=== PATIENT | male | born 1970 | race Caucasian/White ===

== ENCOUNTER → 2018-12-20 | Outpatient (CLI) | payer OTHER ==
[~2018-12-20] VITALS: Ht 198.1 cm; Wt 108.9 kg
[~2018-12-20] MED LIST: B-121000 MC2 PO; COLACE 100 MG100 MG PO; CYMBALTA60 MG PO; DICLOFENAC SODI25 MG PO; EZETIMIBE10 MG PO; FLEXERIL PO; IBUPROFEN 600600 M1 PO; LIPITOR80 MG PO; LISINOPRIL40 MG PO; LORAZEPAM 0.50.5 M1 PO; MOBIC15 MG PO; NEURONTIN600 MG PO; NOHOMEMEDICATIONS; NORCO 5-325 TA1 EACH PO; OMEPRAZOLE40 MG PO; PROPRANOLOL 20M20 M1 PO; ROBAXIN 750 MG750 MG PO; VIAGRA100 MG PO; VITAMIN D1000 UNI1 PO
--- NOTE | ~2018-12-20 | HPC ---
[facility] [address] [place] [address] PAIN MANAGEMENT CONSULTATION Name: LEYVAELIZABETH Room #: REG JONAH [facility].#: [id number] Admission: 12/20/18 Attend Phys: Hunter Alvarez DO Discharge: Date of : 72 Report #: [id number] THIS REPORT FOR: //name// CC: JASON Wren Physician staff DATE OF SERVICE: 12/20/2018 REFERRING NEUROSURGEON: Dr. Augustine Wren CHIEF COMPLAINT: Axial back pain, bilateral lower extremity pain.. HISTORY OF PRESENT ILLNESS: As you know, the patient is a 48-year-old female who has had a longstanding history of low back pain, bilateral lower extremity pain with right greater than left. He has trialled conservative treatment options, physical therapy, plju-mvo-pldnwvn medications and even more adjunct treatment such as a chiropractic manipulation without pain improvement. He has been referred to see Neurosurgery, where he was evaluated by Dr. Augustine Wren and referred to our clinic to undergo an L4-L5 discoblock for ALIF evaluation. The patient indicates pain has been present for years. There has been no new injury or trauma. The patient describes today pain is continuous, steady, constant, rhythmic with intermittent momentary and transient exacerbations of symptoms. He indicates pain is burning, shooting, aching, pulling, gnawing, throbbing, pounding, sharp, stabbing, numbness and tingling when describing symptoms. He places current pain score at 7/10, daily average at 8/10, worst pain has been is 8/10. The patient states that sitting, walking and standing exacerbates symptoms; nothing has improved pain to date. He has been referred to our service by his neurosurgeon to undergo an L4-L5 discoblock for a possible surgical consideration. PAST MEDICAL HISTORY: 1. Degenerative joint disease. 2. Osteoarthritis. 3. Coronary artery disease. 4. Peptic ulcer disease. 5. Dyslipidemia. PAST SURGICAL HISTORY: 1. Herniorrhaphy. 2. Vasectomy. SOCIAL HISTORY: The patient smokes 1-pack to 1-1/2 packs tobacco per day, has [facility] [address] [place] [address] PAIN MANAGEMENT CONSULTATION Name: ELIZABETH LEYVA Room #: REG [facility].#: [id number] Admission: 12/20/18 Attend Phys: Hunter Alvarez DO Discharge: Date of : 72 Report #: [id number] done so for 35 years. He denies IV or illicit drug use. He admits to occasional alcohol beverage. He is currently unemployed as he has stopped work since 06/2018 due to ongoing back pain issues. He is not receiving workmen's compensation, nor is he trying to obtain disability benefits. He is not in litigation in regards to pain. He is unaccompanied today. ALLERGIES: No reported drug allergies. CURRENT MEDICATIONS: Gabapentin 600 mg t.i.d., propranolol 20 mg b.i.d., lorazepam 0.5 mg b.i.d., duloxetine 60 mg 2 tablets p.o. at bedtime, diclofenac sodium 25 mg 3 times a day, methocarbamol 750 mg q.8 hours p.r.n., omeprazole 40 mg per day, atorvastatin 80 mg per day, cyclobenzaprine 10 mg t.i.d., Zetia 10 mg once a day, meloxicam 15 mg once a day, Viagra 100 mg p.r.n., cyanocobalamin 1000 mcg once a day, cholecalciferol 1000 units once a day, lisinopril 40 mg per day, hydrocodone/acetaminophen 5/325 one tablet every 4 hours p.r.n. for pain and Colace 100 mg once a day p.r.n. IMAGING: X-ray imaging of the lumbar spine obtained 10/18/2018 shows grade 1 anterolisthesis of L2 on L3, slightly progressed from 12/2017. No evidence of acute herniation or changes in the vertebral column other than that single issue. PHYSICAL EXAMINATION: VITAL SIGNS: Blood pressure 137/83, pulse 63, respiratory rate 16 and unlabored. The patient is 100% on room air, height 6 feet 6 inches tall, weight 240 pounds, BMI calculated 27.7. GENERAL: Well-developed, well-nourished, well-hydrated 48-year-old male, appearing stated age, pain is rated around 7/10. HEENT: Normocephalic, atraumatic. Pupils are equal, round, reactive to light. Extraocular muscles are intact. Sclerae are nonicteric without injection. NEUROLOGIC: Cranial nerves 2-12 grossly intact. Speech fluent. The patient deemed a good historian. LUNGS: Clear, though prolonged expiratory phase. CARDIOVASCULAR: Regular. No appreciable gallop, no rub. ABDOMEN: Soft, nontender, nondistended, normoactive bowel sounds. EXTREMITIES: Show no clubbing, no cyanosis, and no edema. MUSCULOSKELETAL: Lower extremity strength appears symmetrical, 5/5. Muscle bulk and tone is equal and symmetrical in comparing left lower extremity to right. Seated straight leg raising negative. Supine straight leg raising negative. KIRTI'S test is negative. Modified Gaenslen's is positive for some axial back pain. Axial compression does cause increase in overall pain in the lumbar region. Lumbar provocation testing including extension, rotation, lateral flexion, all intensify axial back pain. No radicular component noted with today's evaluation. Babinski is negative. Ankle clonus negative. ASSESSMENT: [facility] [address] [place] [address] PAIN MANAGEMENT CONSULTATION Name: GERA LEYVAIC Room #: REG Kristopher Cottrell#: [id number] Admission: 12/20/18 Attend Phys: Hunter Alvarez DO Discharge: Date of : 72 Report #: [id number] 1. Discogenic pain. 2. Displacement of intervertebral disk at the L4-L5 level. 3. Chronic intractable pain. PLAN: 1. The patient has been referred to our service by his neurosurgeon, Dr. Augustine Wren, to undergo a diagnostic L4-L5 discoblock for possible ALIF evaluation. The patient indicates he has been experiencing pain for years and has finally had some treatment from a medication management standpoint, but also from injection standpoint at his prior pain service. He has been referred to our clinic after seeing Neurosurgery to undergo disc block for diagnostic purposes. If this is successful, then the plan will have the patient to undergo surgery with Dr. Augustine Wren. He has been referred to our service to begin the authorization process to undergo an L4-L5 discoblock to address discogenic pain. 2. The patient was advised that third alliance party payer restrictions require the authorization be obtained before the patient could undergo this requested diagnostic block. We will begin the process of preapproval immediately. We will contact the patient once this has been completed. Authorization could take anywhere from 4 to 7 working days. We are hopeful to have this process completed, so the patient can undergo the procedure and move forward with surgery, assuming he gets good and prolonged benefit with the block itself. 3. No medication changes made at today's visit. The patient will continue current medical therapy as previously prescribed. 4. We will see the patient back in followup visit once we have achieved authorization to undergo a L4-L5 discoblock under fluoroscopic guidance. 5. We wish to thank Dr. Wren for the referral of the patient to our clinic. We will keep you apprised of his response to treatment as he would undergo this diagnostic block. Again, we wish to thank you for the opportunity to see the patient in consultation. By: [id number] Hunter Alvarez DO /nt
[2018-12-20 09:35] VITALS: BP 137/83
--- NOTE | 2018-12-20 10:00 | NUR ---
Pain Clinic Assessment: 1. History of Osteoarthritis: LOWER BACK History of Rheumatoid Arthritis: NONE 2. Height: 6 ft. 6 in. 198.1 cm. Weight: 240.0 lb. oz. 108.864 kg. Patient's BMI: 27.7 3. Vital Signs: BP: 137/83 Pulse: 63 Resp: 16 Temp: 02 Sat: 100 ECG Mon: 4. Pain Intensity: 7 5. Fall Risk: Dizziness: N Needs help standing or walking: N Fallen in the last 3 months: Y Fall risk comments: 6. Patient on Blood Thinner: None 7. History of Hypertension: Y 8. Opioid Therapy greater than 6 weeks: Opiate Contract Signed: 9. Risk Assessment Tool Provided: LOW 10. Functional Assessment Tool: 48/ 11. Recreational Drug Use: Never Drug Type: Tobacco Use: Current Every Day Smoker Tobacco Type: Cigarettes Amount or Packs/day: 1.5 pack How Many Years: 32 Alcohol Use: Yes Frequency: Special Occasions Quant:
== END ==
LOC: PAIN 06:54
DX: M51.26 Other intervertebral disc displacement, lumbar region (principal); M79.662 Pain in left lower leg; M79.661 Pain in right lower leg; M19.90 Unspecified osteoarthritis, unspecified site; E78.5 Hyperlipidemia, unspecified; I25.10 Atherosclerotic heart disease of native coronary artery without angina pectoris; K27.9 Peptic ulcer, site unspecified, unspecified as acute or chronic, without hemorrhage or perforation; G89.4 Chronic pain syndrome; Z79.891 Long term (current) use of opiate analgesic

== ENCOUNTER → 2019-01-04 | Outpatient (CLI) | payer OTHER ==
[~2019-01-04] VITALS: Ht 195.6 cm; Wt 107.5 kg
[~2019-01-04] MED LIST changes: +ASPIR 8181 MG PO; +ZETIA10 MG PO
[2019-01-04 08:56] VITALS: BP 126/85
--- NOTE | 2019-01-04 09:06 | NUR ---
Pain Clinic Assessment: 1. History of Osteoarthritis: LOWER BACK History of Rheumatoid Arthritis: NONE 2. Height: 6 ft. 5 in. 195.6 cm. Weight: 237.0 lb. oz. 107.503 kg. Patient's BMI: 28.1 3. Vital Signs: BP: 126/85 Pulse: 61 Resp: 12 Temp: 02 Sat: 99 ECG Mon: 4. Pain Intensity: 6 5. Fall Risk: Dizziness: N Needs help standing or walking: N Fallen in the last 3 months: Y Fall risk comments: FELL DAYS 3 DAYS AGO- LEG GAVE OUT DID NOT SEEK MEDICAL 6. Patient on Blood Thinner: None 7. History of Hypertension: Y 8. Opioid Therapy greater than 6 weeks: Opiate Contract Signed: 9. Risk Assessment Tool Provided: SARAH 10. Functional Assessment Tool: 11. Recreational Drug Use: Never Drug Type: Tobacco Use: Current Every Day Smoker Tobacco Type: Cigarettes Amount or Packs/day: 1.5 How Many Years: 30 Alcohol Use: Yes Frequency: Special Occasions Quant:
--- NOTE | 2019-01-10 13:41 | HPC ---
[facility] [place] [address] PAIN MANAGEMENT CONSULTATION Name: ELIZABETH LEYVA Room #: REG [facility].#: [id number] Admission: 01/04/19 Attend Phys: Hunter Alvarez DO Discharge: Date of : 72 Report #: [id number] THIS REPORT FOR: //name// CC: JASON Jacobsen Physician staff DATE OF SERVICE: 01/04/2019 CHIEF COMPLAINT: Axial back pain, bilateral lower extremity pain. HISTORY OF PRESENT ILLNESS: As you know, the patient is a 48-year-old male with longstanding history of low back pain, bilateral lower extremity pain with paresthesias, right greater than left. He has trialed conservative medical therapy, physical therapy and hdgz-bis-bsvlcen medications as well as adjunctive treatments such as chiropractic manipulation without pain improvement. He sought evaluation through Neurosurgery who referred the patient to our clinic to undergo an L4-L5 discoblock under fluoroscopic guidance to determine if surgical options at that level will provide improvement. He returns today having received precertification to undergo an L4-L5 discoblock under fluoroscopic guidance per the request of Dr. Jacobsen. The patient today is reporting pain at a level of 6/10. He denies any new injury, trauma or any changes in medical history since our last visit. ALLERGIES: No drug allergies. CURRENT MEDICATIONS: Gabapentin, propranolol, lorazepam, duloxetine, diclofenac sodium, methocarbamol, omeprazole, atorvastatin, cyclobenzaprine, Zetia, meloxicam, Viagra, cyanocobalamin, cholecalciferol, lisinopril, hydrocodone and Colace. SOCIAL HISTORY: The patient smokes 1 pack to 1-1/2 packs of tobacco per day. He has done so for 35 years. Denies IV or illicit drug use. Admits to occasional alcohol beverage. He is currently unemployed, having stopped working in 06/2018 due to back pain. He is unaccompanied today. IMAGING: No new imaging available. PHYSICAL EXAMINATION: VITAL SIGNS: Blood pressure 126/85, pulse 61, respiratory rate 12 and unlabored. The patient is 99% on room air, height 6 feet 5 inches tall, weight 237 pounds, BMI calculated 28.1. GENERAL: Well-developed, well-nourished, well-hydrated 48-year-old male appearing stated age, pain is rated today at around 6/10. [place] [address] PAIN MANAGEMENT CONSULTATION Name: ELIZABETH LEYVA Room #: REG CLI [facility]#: [id number] Admission: 01/04/19 Attend Phys: Hunter Alvarez DO Discharge: Date of : 72 Report #: [id number] HEENT: Normocephalic, atraumatic. Pupils equal, round, reactive to light. EXTREMITIES: Show no clubbing, no cyanosis, and no edema. MUSCULOSKELETAL: Lower extremity strength is symmetrical 5/5. Muscle bulk and tone remains symmetrical in the lower extremities when comparing left to right. Seated straight leg raising negative. Supine straight leg raising negative. Jimena's test negative. Modified Gaenslen's positive for axial low back pain. Lumbar provocation testing is met with increasing pain over the lower lumbar spine. ASSESSMENT: 1. Discogenic pain. 2. Displacement of intervertebral disk at the L4-L5 level. 3. Chronic intractable pain. PLAN: 1. The patient returns today in followup visit having received precertification to undergo L4-L5 disc block per the request of his neurosurgeon to determine if a surgical option at this level will provide prolonged benefit. The patient and I discussed the risks and benefits of an intradiscal injection with local anesthetic. These risks include but are not necessarily limited to bleeding, bruising, infection, worsening pain, no relief of pain, also risk of temporary or permanent muscle weakness, temporary or permanent nerve damage, possible paralysis, possible diskitis and . The patient states understood and wished to proceed. 2. No medication changes made at today's visit. The patient will contact our clinic over the next 24-48 hours to advise us of the efficacy of this injection. We are looking for a significant improvement in overall pain with this disc block. If this is successful, the patient will contact his neurosurgeon to discuss the options from surgical standpoint. 3. We wish to thank Dr. Jacobsen for the opportunity to work with the patient, will be returning his care to your capable hands to discuss options for treatment based on the positive discoblock provided today, DESCRIPTION OF PROCEDURE: L4-L5 discoblock under fluoroscopic guidance. After obtaining written consent, the patient was taken back to fluoroscopy suite, placed in prone position with pillow under abdomen to decrease lumbar lordosis. Skin overlying the lumbosacral area then prepped and draped in aseptic fashion. A 27-gauge 1-1/4 inch needle was used to anesthetize skin and subcutaneous tissue with 3 mL of 1% lidocaine. A 20-gauge 4-1/2 inch Tuohy needle was advanced under fluoroscopic guidance towards the L4-L5 disk under direct fluoroscopic imaging. Needle was advanced to the superior articular process of L5 just lateral to the process itself. Needle was then confirmed in from position standpoint with AP and lateral fluoroscopy. Once position was confirmed, the needle was then advanced into the [facility] [address] [place] [address] PAIN MANAGEMENT CONSULTATION Name: ELIZABETH LEYVA Room #: REG [facility].#: [id number] Admission: 01/04/19 Attend Phys: Hunter Alvarez DO Discharge: Date of : 72 Report #: [id number] disk without complication. Needle was advanced until reaching the medial portion of the disk. Confirmation of needle positioning was made with both AP and lateral fluoroscopy. After negative aspiration for heme, 3 mL of bupivacaine 0.5% was injected slowly. Needle was then retracted half-way, flushed with 1 mL of 1% lidocaine, then removed. Sterile bandage placed over injection site. There were no new motor deficits present in the lower extremities following procedure. The patient tolerated the procedure well, carefully escorted to recovery room in stable condition. No apparent complications. VAS before procedure 6/10, VAS 2 hours after procedure based on the telephone call from the patient 05/29. <ELECTRONICALLY SIGNED> By: Hunter Alvarez DO 01/10/19 1341 [id number] [id number] Hunter Alvarez DO /nt
== END | disposition home or self-care (01) ==
LOC: PAIN 06:55
DX: M54.9 Dorsalgia, unspecified (principal); M51.26 Other intervertebral disc displacement, lumbar region; G89.29 Other chronic pain; F17.210 Nicotine dependence, cigarettes, uncomplicated; Z79.899 Other long term (current) drug therapy; Z98.890 Other specified postprocedural states